=== PATIENT | female | born 1995 | race Caucasian/White ===

== ENCOUNTER 2021-05-31 17:33 | Emergency (ER) | payer BC, SELFPAY ==
--- NOTE | ~2021-05-31 | XR_ITS ---
XR knee LT min 4V DATE: 05/31/2021 18:12 INDICATION: Left knee pain and swelling after jogging and kneeling TECHNIQUE: AP, bilateral oblique views and crosstable lateral view COMPARISON: None FINDINGS: No fracture or dislocation or joint effusion, radiopaque intra-articular loose body, chondr ocalcinosis. Joint spaces are relatively preserved. No periosteal reaction or bone destruction. IMPRESSION: No significant abnormality Reviewed, dictated and finalized at location A. IMPRESSION: No significant abnormality
[2021-05-31 17:54] VITALS: BP 134/95; PULSE 77; RESP 18; TEMP 36.6; O2SAT 100
--- NOTE | 2021-05-31 17:54 | ED.LOWEXIN ---
HPI - Extremity Injury (Lower) General Chief Complaint: Extremity Injury, Lower Stated Complaint: lt knee injury Time Seen by Provider: 05/31/21 17:54 Source: patient Mode of arrival: ambulatory Limitations: no limitations History of Present Illness HPI Narrative: 26-year-old female presents with left knee pain for 2 days. States that she did her normal running. Which did not cause any pain to left knee and then was working in her garden for about an hour. States that she was in a squatting position. The next day she woke up with pain and swelling to left knee. She is ambulatory with a slight limp. No previous knee injuries or surgeries. Reports pain with extension. All systems reviewed and negative except as noted above. Related Data Home Medications Medication Instructions Recorded Confirmed No Home Medications 05/31/21 05/31/21 Allergies Allergy/AdvReac Type Severity Reaction Status Date / Time No Known Allergies Allergy Verified 05/31/21 17:58 Review of Systems Review of Systems: CONSTITUTIONAL: Denies fever, chills, or sweats. EYES: Denies visual changes, redness, or discharge. ENT: Denies rhinorrhea, congestion, sore throat, or otalgia. CARDIOVASCULAR: Denies chest pain, palpitations, or edema. RESPIRATORY: Denies cough or dyspnea. GASTROINTESTINAL: Denies abdominal pain, nausea, vomiting, or diarrhea. GENITOURINARY: Denies dysuria or hematuria. SKIN: Denies rash or itching. MUSCULOSKELETAL: Denies back pain or myalgia. Reports left knee pain. NEUROLOGIC: Denies headache, numbness, or weakness. PSYCHIATRIC: Denies anxiety or depression. All other systems reviewed are negative, except as documented in HPI. PMFSH Comments At time of signature, agree with nursing past medical, surgical, social and family history. There is no relevant family history pertinent to the presenting complaint. Exam Narrative: GENERAL: This is a well-nourished, well-developed patient, in no apparent distress. HEAD: normocephalic, atraumatic. EYES: PERRL. Sclera clear/white. Vision is grossly intact. EARS: External ears normal NOSE: External nose normal . NECK: Neck supple, non-tender without lymphadenopathy, masses or thyromegaly. CARDIOVASCULAR: Regular rate and rhythm without murmurs, gallops, or rubs. RESPIRATORY: Clear to auscultation. Breath sounds equal bilaterally. No wheezes, rales, or rhonchi. SKIN: warm, Dry, intact with no suspicious lesions or rash, good texture and turgor. NEURO: awake, alert, and oriented to person, place and time. There were no obvious focal neurologic abnormalities. EXTREMITIES: Decreased extension to left knee. Tenderness to lateral aspect joint line. There is mild swelling lateral aspect. There is no tenderness to patella tendon. No instability noted, negative anterior/posterior drawer test. Course Course Level of Care: Express Care Visit Vital Signs Vital signs: Vital Signs Temperature 36.6 C 05/31/21 17:54 Pulse Rate 77 05/31/21 17:54 Respiratory Rate 18 05/31/21 17:54 Blood Pressure 134/95 H 05/31/21 17:54 Pulse Oximetry 100 05/31/21 17:54 Temperature 36.6 C 05/31/21 17:54 Pulse Rate 77 05/31/21 17:54 Respiratory Rate 18 05/31/21 17:54 Blood Pressure 134/95 H 05/31/21 17:54 Pulse Oximetry 100 05/31/21 17:54 Reviewed MDM - Extremity Injury (Lower) MDM Narrative Medical decision making narrative: Discussed x-ray results with patient. We discussed loose bodies and calcium deposits. Recommend she follow-up with her primary care physician over the next few weeks if pain is not improving. Will take ibuprofen as needed for pain. Patient is aware of diagnosis, understands and agrees to treatment plan. Anticipatory guidance given. Patient agrees to follow-up as directed and is aware of reasons to seek care at the emergency department. Portions of this record may have been created with voice recognition software Imaging Data Attestation: I p
== END 2021-05-31 18:25 | disposition home or self-care (01) ==
PROVIDERS: Emergency Provider Nurse Practitioner Family
DX: M23.42 Loose body in knee, left knee (principal); S86.912A Strain of unspecified muscle(s) and tendon(s) at lower leg level, left leg, initial encounter; X50.1XXA Overexertion from prolonged static or awkward postures, initial encounter
CPT/HCPCS: 73564; 99203; G0463